=== PATIENT | male | born 1975 | race Native Hawaiian/Other Pacific Islander ===

== ENCOUNTER 2022-05-25 01:18 | Emergency (ER) | payer OTHER ==
[~2022-05-25] VITALS: Ht 180.3 cm; Wt 90.7 kg
[2022-05-25 01:57] LABS: PLATELET COUNT 258 K/uL (142-355)
[2022-05-25 02:03] LABS: POTASSIUM 3.9 mmol/L (3.6-5.2)
== END 2022-05-25 03:00 | disposition home or self-care (01) ==
LOC: ED 01:18
PROVIDERS: Emergency Medicine
DX: R04.0 Epistaxis (principal); I10 Essential (primary) hypertension; R63.4 Abnormal weight loss; F17.210 Nicotine dependence, cigarettes, uncomplicated
CPT/HCPCS: 36415; 80053; 80307; 84484; 85027; 85610; 85730; 93005; 96374; 99284; J0360